=== PATIENT | female | born 1975 | race Caucasian/White ===

== ENCOUNTER 2017-10-16 12:57 | Inpatient (IN) ==
[2017-10-16] MEDS ORDERED: NS 1,000 ML IV ONE (13:34)
[2017-10-16] MEDS ORDERED: PROCHLORPERAZINE 10 MG/2 ML INJECTION IVP PRN (13:37)
[2017-10-16] MEDS ORDERED: CEFTRIAXONE 2 GM in NS 100 ML IV SCH (13:45)
[2017-10-16 14:01] VITALS: BMI 31.2
--- NOTE | 2017-10-16 14:34 | History & Physical Report ---
History of Present Illness Date: 10/16/17 Chief complaint: Syncopal episodes, headache, tick bite HPI: Melisa is a 42-year-old female who has been having intermittent episodes of syncope since 10/07/17. She reports that approximately 3 weeks ago she received a tick bite to her left anterior ankle. On 10/07/17 she had a syncopal episode at which time she lost consciousness as well as was incontinent of urine followed by vomiting. She is seen in the emergency room in [place] and discharged once stable. She did have a 24-hour Holter monitor that she does not know the results. She then was at work on 10/12/17 and again had a near syncopal episode where she felt hot and lightheaded. She states that she did not lose consciousness at this time. However, she did vomit. She presented back to [facility] emergency room for reevaluation. She was admitted outpatient observation and monitored. She was told that overnight she had several episodes of low heart rate into the 40s. On 10/11 she did have an outpatient echocardiogram that revealed an EF of 72%, otherwise normal. Today, 10/16/17 she presented to [facility] clinic for follow-up. While waiting in the waiting room, she again felt hot and lightheaded followed by dizziness. Again, she was directed to the ER for acute evaluation. Labs were obtained. Urinalysis showed trace ketones, small amount of blood, 2-5 RBCs, otherwise unremarkable. A 12-lead EKG showed normal sinus rhythm without any ST changes. Sedimentation rate was 13, chemistry panel normal, CRP less than 2, CBC unremarkable. D-dimer had been obtained on 10/03/17 that was normal. Pylori is negative. Chest x-ray unremarkable. CT scan of the head was obtained from 10/07/17 that was unremarkable. Neck concern for ongoing symptoms. The hospitalist services were contacted and accepted patient for transfer to [facility] for outpatient observation for further workup. Review of Systems All systems PM: 10-point ROS was reviewed, no additional remarkable complaints except - Constitutional Constitutional: Present: fatigue - EENMT Eyes: Present: photophobia - Cardiovascular Cardiovascular: Present: syncope - Gastrointestinal Gastrointestinal: Present: nausea - Musculoskeletal Musculoskeletal: Present: arthralgias, neck pain, stiffness - Neurological Neurological: Present: dizziness (intermittent) Neurological Comments: Headaches - Psychiatric Psychiatric: Present: difficulty concentrating - Endocrine Endocrine: Present: flushing Past Medical History Medical History Updates: Asthma Surgical History: Hysterectomy. Tonsillectomy Family History: Father-heart disease, diabetes, stomach cancer Mother-heart disease, chronic lung problems, diabetes Cousin- who of sudden cardiac at age 33 Family History: As Above - Social History Smoking status: Never smoker Substance use type: does not use Alcohol intake frequency: holidays/special occasions only Housing: house Household members: spouse Current occupational status: employed (Works at [employer] at [employer]) Social history: PCP Anthony Arboleda APRN- [facility] Medications Allergies Allergy/AdvReac Type Severity Reaction Status Date / Time No Known Drug Allergies Allergy Unknown Verified 12/18/13 09:02 Exam Vital Signs: Pulse Rate 68 10/16/17 14:00 Respiratory Rate 20 10/16/17 14:00 Blood Pressure 129/71 10/16/17 14:00 Pulse Oximetry 96 10/16/17 14:00 Height/Weight/BMI: Height 1.78 m Weight 98.9 kg Body Mass Index 31.2 - Constitutional Present: no acute distress, well nourished, well developed - Routine HEENT Exam Head: Present: atraumatic Eye: Present: EOMI, PERRL, normal accommodation ENT: Present: mucous membranes moist, dentition normal - Routine Respiratory Exam Present: CTA bilaterally. Absent: wheezes - Routine Cardiovascular Exam Present: RRR, S1, S2. Absent: murmur - Routine Abdominal Exam Present: soft, normoactive bowel sounds, non distended. Absent: tenderness - Routine Extremities Exam Present: no edema, pulses intact - Routine Skin Exam Present: intact, dry, warm Comments: Healed tick bite to left anterior ankle - Routine Neurological Exam Present: alert, oriented X3, CN II-XII intact, moving all extremities, vision grossly intact, hearing grossly intact, normal speech - Routine Psychiatric Exam Present: normal affect, normal thought process, cooperative Results - Labs CBC & Chem 7: 10/16/17 14:56 10/16/17 14:55 Assessment and Plan (1) Tick bite Current visit: Yes Status: Acute (2) Headache Current visit: Yes Status: Acute Assessment and Plan: Impression Headaches Tick bite- 3 weeks ago Syncopal episodes Arthralgias Asthma Hypernatremia (POA) Obesity with BMI 31.1 Plan Patient outpatient observation under care of Dr. Lucas for further workup. Will obtain CBC, chemistry, blood culture, venous lactate, lipase, magnesium, pro-calcitonin, INR and PTT on admission. In a GI panel given recent episodes of diarrhea/vomiting Will obtain a lumbar puncture with fluoroscopy, radiology. Will obtain tick panel and CSF culture, cell count, protein, and meningitis panel Cardiac telemetry given recent syncopal episodes. ECHO from 10/11 was normal. If she has episodes of bradycardia may need to consider cardiology consultation. IV NS for hydration IV Doxycycline for treatment of tick bite Will also cover meningeal with Rocephin 2 gm IV. SCDs for DVT PPX. Reglan and Compazine as needed for nausea Will discuss further orders and plan of care with attending, Dr. Lucas At time of discharge medical care will return to primary care provider, Anthony Arboleda APRN at [facility] in [place]. DVT Prophylaxis: SCD's Resuscitation Status: Full Code - Physician Narrative Physician: Jonas Lucas MD Narrative: Date: 10/16/17 Time: 0 Have independently interviewed and examined pt. Chart reviewed. Case discussed with Luba Bazan APRN and my [employer]. Care plan developed with my supervision; agree with above. Patient has been having a rough time for the past several weeks. Had syncopal event-was standing talking and then went out briefly, having loss of urine and had episode of emesis. Near syncopal event with emesis many days later. Has been feeling more achy and weak in general. Appetite variable. Notes intermittent loose stool. More SOA and feeling full to chest. Had overnight OBS in [place]-give Rocephin and started on oral doxycycline as recently had tick bite about 3 weeks ago. With IVF, patient felt better for about 2 days, but symptoms would wax and wane. Notes some weakness to right leg at time-will feel unusual and slightly unsteady with going up stairs. Recent Headache with photophobia. Was seen in clinic and looking so ill, sent to ED for evaluation. Lab and imagine unremarkable. Case discussed with ID who recommended LP and also continuation of doxycycline. Not able to perform LP at [place] so accepted in transfer to [facility]. Lungs: decreased, no distress CV: regular AB: soft NT/NS BS decreased MSE: awake alert Plan: OBS for further evaluation and treatment. LP. IVF for hydration. Will continue doxycycline, adding ceftriaxone 2 grams IV daily. With variable neurological symptoms, MRI would be beneficial to exclude MS. SCD for DVT prevention. Hospital Course Summary Disclaimer: The visit summary below is not to be considered part of the above Progress Note. Hospital Course: 10/16/17 Patient outpatient observation under care of Dr. Lucas for further workup. Will obtain CBC, chemistry, blood culture, venous lactate, lipase, magnesium, pro-calcitonin, INR and PTT on admission. In a GI panel given recent episodes of diarrhea/vomiting. Will obtain a lumbar puncture with fluoroscopy, radiology. Will obtain tick panel and CSF culture, cell count, protein, and meningitis panel. Cardiac telemetry given recent syncopal episodes. ECHO from 10/11 was normal. If she has episodes of bradycardia may need to consider cardiology consultation. IV NS for hydration. IV Doxycycline for treatment of tick bite. Will also cover meningeal with Rocephin 2 gm IV. SCDs for DVT PPX. Reglan and Compazine as needed for nausea. At time of discharge medical care will return to primary care provider, Anthony Arboleda APRN at [facility].
[2017-10-16] MEDS ORDERED: ACETAMINOPHEN 500 MG TABLET PO PRN (14:46)
[2017-10-16] MEDS ORDERED: LIDOCAINE 1% (10mg/ml) 5ml PF SDV ONE (15:41)
--- NOTE | 2017-10-16 16:35 | Fluoroscopy Report ---
INDICATION: tick bite Ordering physician:Ju Hastings Procedure:FL lumbar puncture LUMBAR PUNCTURE: The procedure, including the benefits, risks, and alternatives were explained in detail to the patient. All of her questions were answered. They were given the option to decline the procedure. They stated that they understood and wished to proceed. Informed consent was obtained. A pre-procedural timeout was done to verify the correct patient and proper procedure. Using sterile technique, local Xylocaine anesthesia, and fluoroscopic guidance throughout, a 20 G spinal needle was advanced from a posterior approach into the subarachnoid space at the L2-3 level. A fluoroscopic image was then obtained and archived. Removal of the stylet showed clear colorless CSF. Opening pressure was 24 centimeters of water in the prone position. Then 12 cc of CSF was taken off and sent to the lab for the requested studies. The needle was removed. The procedure was completed without complication. Following this, the patient was transferred to the recovery room and given discharge instructions. She was in stable condition. Impression: 1. Successful lumbar puncture performed with 12 cc of CSF removed. 2. Opening pressure of 24 cm of water in the prone position. Fluoroscopy dose: 6.23 mGy (Cumulative air kerma) Krishna Johnson RPA/CHRIS performed this under my personal supervision. .
[2017-10-16] MEDS: 1/2 NS 1,000 ML IV SCH (16:41)
[2017-10-16] MEDS ORDERED: MORPHINE SULFATE 2mg INJECTION IVP PRN (17:00)
[2017-10-16] MEDS ORDERED: ONDANSETRON ODT 4 MG TABLET PO PRN (17:01)
[2017-10-16] MEDS ORDERED: BISACODYL 10 MG SUPPOSITORY RECTALLY PRN (17:02)
[2017-10-16] MEDS: KETOROLAC 15 MG/ML INJECTION IVP PRN (17:28)
[2017-10-16] MEDS: HYDROCODONE/APAP 7.5 MG/325 MG TABLET PO PRN (20:55)
[2017-10-16] MEDS: DOXYCYCLINE 100 MG in NS 250ml 250 ML IV SCH (20:55)
[2017-10-17] MEDS: 1/2 NS 1,000 ML IV SCH ×3 (04:02→17:17)
[2017-10-17] MEDS: HYDROCODONE/APAP 7.5 MG/325 MG TABLET PO PRN ×3 (04:04→20:43)
[2017-10-17] MEDS: DOXYCYCLINE 100 MG in NS 250ml 250 ML IV SCH ×2 (08:39→20:44)
--- NOTE | 2017-10-17 13:08 | Progress Note ---
- Date 10/17/17 Subjective: F/U: [place] Spotted Fever, Headaches, Arthralgias Still with MCKEON, but slightly better. Pain more so in posterior aspect of head and neck. MS helps, but short lived - Donie slower to help but lasts longer. Tolerating pain medications without increase nausea. Appetite still with decrease, but able to keep liquids and small amounts of food in without emesis. Very dizzy when sitting up or moving. Breathing well without SOA or cough. No pain with breathing. Urinating well. Slight puffiness to legs. Does feel weak, tired, and washed out. Objective Vital signs: Temperature 97.3 F 10/17/17 07:24 Pulse Rate 76 10/17/17 07:21 Respiratory Rate 18 10/17/17 07:21 Blood Pressure 127/82 10/17/17 07:21 Pulse Oximetry 98 10/17/17 07:21 Height/Weight/BMI: Height 1.78 m Weight 99.8 kg Body Mass Index 31.2 - Constitutional Present: well nourished, well developed, obese, cooperative, other (Looks tired and weak) - Routine HEENT Exam Head: Present: normocephalic, atraumatic Eye: Present: EOMI, PERRL, normal accommodation ENT: Present: mucous membranes moist - Routine Respiratory Exam Present: CTA bilaterally. Absent: rales, respiratory distress, rhonchi, stridor , wheezes, crackles - Routine Cardiovascular Exam Present: RRR, no murmur - Routine Abdominal Exam Present: soft, non distended, non tender. Absent: normoactive bowel sounds ( Decreased) - Routine Extremities Exam Present: edema (Trace bilaterally), pulses intact. Absent: cyanosis, clubbing - Routine Musculoskeletal Exam Musculoskeletal: Present: no clubbing or cyanosis - Routine Skin Exam Present: intact, dry, warm - Routine Neurological Exam Present: alert, oriented X3, CN II-XII intact, moving all extremities, vision grossly intact, hearing grossly intact, normal speech. Absent: altered mental status - Routine Psychiatric Exam Present: normal affect, normal thought process, cooperative. Absent: anxious, agitated Results - Labs CBC & Chem 7: 10/17/17 08:09 10/17/17 08:09 Microbiology Results: Microbiology 10/16/17 16:10 Csf, Lumbar Puncture CSF Gram Stain - Final 10/16/17 16:10 Csf, Lumbar Puncture CSF Culture - Preliminary Culture Initiated - Results Pending 10/16/17 14:58 Peripheral/Iv Start Blood Culture - Preliminary Culture Initiated - Results Pending 10/16/17 14:55 Peripheral/Iv Start Blood Culture - Preliminary Culture Initiated - Results Pending Assessment and Plan (1) Tick bite Current visit: Yes Status: Acute (2) Headache Current visit: Yes Status: Acute Assessment and Plan: Impression [place] Spotted Fever Headaches Tick bite- 3 weeks ago Syncopal episodes Arthralgias Asthma Hypernatremia (POA) Obesity with BMI 31.1 Plan Serology taken in [place] over the weekend is positive for [place] Spotted Fever. MCKEON persists, but pain medications helping. Less nausea, but oral drive decreased. MRI brain pending. With positive RMSF and continued symptoms do not feel patient able to discharge at this time. Continue with Doxycycline 100mg IV BID. Can stop ceftriaxone. Decrease IVF to 75cc/hr. Continue pain control, adding Aspercreme and heating pad to neck for symptom relief. Increase activities as able. Will recheck CBC and BMP in am secondary to acute infection and IVF use. Case discussed with CM and family. Time spent with patient care 25 minutes. DVT Prophylaxis: SCD's Resuscitation Status: Full Code - Time spent with patient Time with patient PN: 25 minutes - Physician Narrative Physician: Jonas Lucas MD Narrative: Date: 10/17/17 Time: [id number] Hospital Course Summary Disclaimer: The visit summary below is not to be considered part of the above Progress Note. Hospital Course: 10/16/17 Patient outpatient observation under care of Dr. Lucas for further workup. Will obtain CBC, chemistry, blood culture, venous lactate, lipase, magnesium, pro-calcitonin, INR and PTT on admission. In a GI panel given recent episodes of diarrhea/vomiting. Will obtain a lumbar puncture with fluoroscopy, radiology. Will obtain tick panel and CSF culture, cell count, protein, and meningitis panel. Cardiac telemetry given recent syncopal episodes. ECHO from 10/11 was normal. If she has episodes of bradycardia may need to consider cardiology consultation. IV NS for hydration. IV Doxycycline for treatment of tick bite. Will also cover meningeal with Rocephin 2 gm IV. SCDs for DVT PPX. Reglan and Compazine as needed for nausea. At time of discharge medical care will return to primary care provider, Anthony Arboleda APRN at [facility] in [place]. 10/17/17 Serology taken in [place] over the weekend is positive for [place] Spotted Fever. MCKEON persists, but pain medications helping. Less nausea, but oral drive decreased. MRI brain pending. With positive RMSF and continued symptoms, do not feel patient able to discharge at this time. Continue with Doxycycline 100mg IV BID. Can stop ceftriaxone. Decrease IVF to 75cc/hr. Continue pain control, adding Aspercreme and heating pad to neck for symptom relief. Increase activities as able.
[2017-10-17] MEDS ORDERED: SALINE FLUSH 10ml SYRINGE ONE (13:45)
--- NOTE | 2017-10-17 14:47 | Magnetic Resonance Report ---
Indication: Variable neurological symptoms - ? MS, tumor PROCEDURE: MR head/brain wo/w con: Encounter: Initial Comparisons: None Technique: Multiplanar, multisequence, MR imaging of the head with and without contrast was acquired. Contrast: 19 mL of ProHance FINDINGS: The ventricles are of normal size, shape, and contour for the patient's age. The brain stem, cerebellum, and cerebral hemispheres have a normal morphologic appearance as well as MR signal intensity on all pulse sequences. Following intravenous administration of contrast, no areas of abnormal enhancement are evident. There are no areas of restricted diffusion to suggest an acute infarct. There is no evidence of an intracranial mass lesion, intracranial hemorrhage, or hydrocephalus. The visualized portions of the orbits, calvarium, paranasal sinuses, and skull base demonstrate no significant abnormality. IMPRESSION: Normal exam .
[2017-10-18] MEDS: HYDROCODONE/APAP 7.5 MG/325 MG TABLET PO PRN ×3 (03:04→18:13)
[2017-10-18] MEDS: 1/2 NS 1,000 ML IV SCH ×3 (03:33→18:01)
[2017-10-18] MEDS: METOCLOPRAMIDE 10mg/2ml INJECTION IVP PRN (07:44)
[2017-10-18] MEDS ORDERED: DOCUSATE SODIUM 100 MG CAPSULE PO PRN (08:31)
[2017-10-18] MEDS: DOXYCYCLINE 100 MG in NS 250ml 250 ML IV SCH ×2 (08:49→21:36)
--- NOTE | 2017-10-18 14:16 | Progress Note ---
- Date 10/18/17 Subjective: F/U: [place] Spotted Fever, Headaches, Arthralgias Still with headache and nausea. Oral drive decreased-will take some foods/ liquids in but not very hungry. Pain medications helping-not worsening nausea, but slowing stool. Passing flatus, but not feeling need for bowel movement. Urinating well-not too urgent or frequent, making normal amount of urine. Very weak and fatigued in general. Tires easily. Breathing stable. Objective Vital signs: Temperature 97.8 F 10/18/17 07:37 Pulse Rate 63 10/18/17 09:00 Respiratory Rate 16 10/18/17 07:37 Blood Pressure 118/73 10/18/17 07:37 Pulse Oximetry 96 10/18/17 07:37 Height/Weight/BMI: Height 1.78 m Weight 100.1 kg Body Mass Index 31.2 - Constitutional Present: well nourished, well developed, obese, cooperative, other (Appears tired) - Routine HEENT Exam Head: Present: normocephalic, atraumatic Eye: Present: EOMI, PERRL ENT: Present: mucous membranes moist - Routine Respiratory Exam Present: CTA bilaterally. Absent: respiratory distress - Routine Cardiovascular Exam Present: RRR, no murmur - Routine Abdominal Exam Present: soft, non distended, non tender. Absent: normoactive bowel sounds - Routine Extremities Exam Present: edema (Trace BLE ), pulses intact. Absent: cyanosis, clubbing - Routine Musculoskeletal Exam Musculoskeletal: Present: no clubbing or cyanosis - Routine Skin Exam Present: dry, warm - Routine Neurological Exam Present: alert, oriented X3, CN II-XII intact, moving all extremities, vision grossly intact, hearing grossly intact, normal speech. Absent: motor deficit - Routine Psychiatric Exam Present: cooperative, good insight, good judgment Comments: Psychomotor slowing Results - Labs CBC & Chem 7: 10/18/17 04:49 10/18/17 04:49 Microbiology Results: Microbiology 10/16/17 16:10 Csf, Lumbar Puncture CSF Gram Stain - Final 10/16/17 16:10 Csf, Lumbar Puncture CSF Culture - Preliminary No Growth After 1 Day 10/16/17 14:58 Peripheral/Iv Start Blood Culture - Preliminary No Growth After 1 Day 10/16/17 14:55 Peripheral/Iv Start Blood Culture - Preliminary No Growth After 1 Day Assessment and Plan (1) Tick bite Current visit: Yes Status: Acute (2) Headache Current visit: Yes Status: Acute Assessment and Plan: Impression [place] Spotted Fever Headaches Tick bite- 3 weeks ago Syncopal episodes Arthralgias Asthma Hypernatremia (POA) Obesity with BMI 31.1 Plan Continue with doxycycline for treatment of RSMF. Decreased IVF to 50cc/hr - encourage oral intake as able. Will start routine Miralax daily and Senna-Plus BID secondary to narcotic induced constipation. Continue with pain and nausea control. Encourage activities as able. Case discussed with CM and family. Time spent with patient care 35 minutes. DVT Prophylaxis: SCD's Resuscitation Status: Full Code - Time spent with patient Time with patient PN: 25 minutes - Physician Narrative Physician: Jonas Lucas MD Narrative: Date: 10/18/17 Time: 1413 Hospital Course Summary Disclaimer: The visit summary below is not to be considered part of the above Progress Note. Hospital Course: 10/16/17 Patient outpatient observation under care of Dr. Lucas for further workup. Will obtain CBC, chemistry, blood culture, venous lactate, lipase, magnesium, pro-calcitonin, INR and PTT on admission. In a GI panel given recent episodes of diarrhea/vomiting. Will obtain a lumbar puncture with fluoroscopy, radiology. Will obtain tick panel and CSF culture, cell count, protein, and meningitis panel. Cardiac telemetry given recent syncopal episodes. ECHO from 10/11 was normal. If she has episodes of bradycardia may need to consider cardiology consultation. IV NS for hydration. IV Doxycycline for treatment of tick bite. Will also cover meningeal with Rocephin 2 gm IV. SCDs for DVT PPX. Reglan and Compazine as needed for nausea. At time of discharge medical care will return to primary care provider, Anthony Arboleda APRN at [facility] in [place]. 10/17/17 Serology taken in [place] over the weekend is positive for [place] Spotted Fever. MCKEON persists, but pain medications helping. Less nausea, but oral drive decreased. MRI brain pending. With positive RMSF and continued symptoms, do not feel patient able to discharge at this time. Continue with Doxycycline 100mg IV BID. Can stop ceftriaxone. Decrease IVF to 75cc/hr. Continue pain control, adding Aspercreme and heating pad to neck for symptom relief. Increase activities as able. 10/18/17 Admission status changed to inpatient as continue hospital care needed. Continue with doxycycline for treatment of RSMF. Decreased IVF to 50cc/hr - encourage oral intake as able. Will start routine Miralax daily and Senna-Plus BID secondary to narcotic induced constipation. Continue with pain and nausea control. Encourage activities as able.
[2017-10-18] MEDS: POLYETHYL GLYCOL 3350 17gm PACKET PO SCH (14:59)
[2017-10-18] MEDS: SENNA + DOCUSATE TABLET PO SCH (21:37)
[2017-10-19] MEDS: METOCLOPRAMIDE 10mg/2ml INJECTION IVP PRN ×3 (00:17→17:16)
[2017-10-19] MEDS: HYDROCODONE/APAP 7.5 MG/325 MG TABLET PO PRN ×3 (00:18→17:15)
[2017-10-19] MEDS: 1/2 NS 1,000 ML IV SCH ×2 (03:25→11:28)
[2017-10-19] MEDS: POLYETHYL GLYCOL 3350 17gm PACKET PO SCH (08:28)
[2017-10-19] MEDS: SENNA + DOCUSATE TABLET PO SCH ×2 (08:28→20:58)
[2017-10-19] MEDS: DOXYCYCLINE 100 MG in NS 250ml 250 ML IV SCH ×2 (08:36→20:57)
--- NOTE | 2017-10-19 14:22 | Progress Note ---
- Date 10/19/17 Subjective: F/U: [place] Spotted Fever, Headaches, Arthralgias Improving gradually. Still having headache which make it hard to think, focus, and concentrate. Trying to go longer between pain medications. Nausea comes and goes. Eating more. Keeping fluids in. No f/c. Breathing well. Did have bowel movement. Urinating well. Objective Vital signs: Temperature 98.1 F 10/19/17 07:32 Pulse Rate 62 10/19/17 08:00 Respiratory Rate 18 10/19/17 08:28 Blood Pressure 113/69 10/19/17 07:32 Pulse Oximetry 96 10/19/17 07:32 Height/Weight/BMI: Height 1.78 m Weight 100.2 kg Body Mass Index 31.2 - Constitutional Present: well nourished, well developed, obese, cooperative - Routine HEENT Exam Head: Present: normocephalic, atraumatic Eye: Present: EOMI, PERRL ENT: Present: mucous membranes moist - Routine Respiratory Exam Present: CTA bilaterally. Absent: respiratory distress - Routine Cardiovascular Exam Present: RRR, no murmur - Routine Abdominal Exam Present: soft, non distended, non tender. Absent: normoactive bowel sounds ( decreased) - Routine Extremities Exam Present: edema (+1 BLE), pulses intact. Absent: cyanosis, clubbing - Routine Musculoskeletal Exam Musculoskeletal: Present: no clubbing or cyanosis - Routine Skin Exam Present: dry, warm - Routine Neurological Exam Present: alert, oriented X3, CN II-XII intact, moving all extremities, vision grossly intact, hearing grossly intact, normal speech. Absent: motor deficit Psychomotor slowing. Mentation clear, but mild slowing present. - Routine Psychiatric Exam Present: normal affect, normal thought process, cooperative Comments: Psychomotor slowing Results - Labs CBC & Chem 7: 10/18/17 04:49 10/18/17 04:49 Microbiology Results: Microbiology 10/16/17 16:10 Csf, Lumbar Puncture CSF Gram Stain - Final 10/16/17 16:10 Csf, Lumbar Puncture CSF Culture - Preliminary No Growth After 2 Days 10/16/17 14:58 Peripheral/Iv Start Blood Culture - Preliminary No Growth After 2 Days 10/16/17 14:55 Peripheral/Iv Start Blood Culture - Preliminary No Growth After 2 Days Assessment and Plan (1) Tick bite Current visit: Yes Status: Acute (2) Headache Current visit: Yes Status: Acute Assessment and Plan: Impression [place] Spotted Fever Headaches Encephalopathy/Psychomotor slowing Tick bite- 3 weeks ago Syncopal episodes Arthralgias Asthma Hypernatremia (POA) Obesity with BMI 31.1 Plan Improving. Nausea decreasing-keeping foods/liquids in. MCKEON continues, but able to go longer between pain medications. Will stop IVF as oral intake improving. Continue Doxycycline for treatment of RSMF. Bowel function improving with medication help. Hope for discharge in near future if symptoms improve. Discussed with patient about return to work-would recommend 10/29 at the earliest. Will fill out temporary disability papers for work for patient. Case discussed with CM and family. Time spent with patient care 35 minutes. DVT Prophylaxis: SCD's Resuscitation Status: Full Code - Time spent with patient Time with patient PN: 35 minutes - Physician Narrative Physician: Jonas Lucas MD Narrative: Date: 10/19/17 Time: 141 Hospital Course Summary Disclaimer: The visit summary below is not to be considered part of the above Progress Note. Hospital Course: 10/16/17 Patient outpatient observation under care of Dr. Lucas for further workup. Will obtain CBC, chemistry, blood culture, venous lactate, lipase, magnesium, pro-calcitonin, INR and PTT on admission. In a GI panel given recent episodes of diarrhea/vomiting. Will obtain a lumbar puncture with fluoroscopy, radiology. Will obtain tick panel and CSF culture, cell count, protein, and meningitis panel. Cardiac telemetry given recent syncopal episodes. ECHO from 10/11 was normal. If she has episodes of bradycardia may need to consider cardiology consultation. IV NS for hydration. IV Doxycycline for treatment of tick bite. Will also cover meningeal with Rocephin 2 gm IV. SCDs for DVT PPX. Reglan and Compazine as needed for nausea. At time of discharge medical care will return to primary care provider, Anthony Arboleda APRN at [facility] in [place]. 10/17/17 Serology taken in [place] over the weekend is positive for [place] Spotted Fever. MCKEON persists, but pain medications helping. Less nausea, but oral drive decreased. MRI brain pending. With positive RMSF and continued symptoms, do not feel patient able to discharge at this time. Continue with Doxycycline 100mg IV BID. Can stop ceftriaxone. Decrease IVF to 75cc/hr. Continue pain control, adding Aspercreme and heating pad to neck for symptom relief. Increase activities as able. 10/18/17 Admission status changed to inpatient as continue hospital care needed. Continue with doxycycline for treatment of RSMF. Decreased IVF to 50cc/hr - encourage oral intake as able. Will start routine Miralax daily and Senna-Plus BID secondary to narcotic induced constipation. Continue with pain and nausea control. Encourage activities as able. 10/19/17 Improving. Nausea decreasing-keeping foods/liquids in. MCKEON continues, but able to go longer between pain medications. Will stop IVF as oral intake improving. Continue Doxycycline for treatment of RSMF. Bowel function improving with medication help. Hope for discharge in near future if symptoms improve. Discussed with patient about return to work-would recommend 10/29 at the earliest.
[2017-10-19] MEDS ORDERED: NS FLUSH BAG 500ml IV PRN (22:49)
[2017-10-20] MEDS: HYDROCODONE/APAP 7.5 MG/325 MG TABLET PO PRN (06:45)
[2017-10-20] MEDS: SENNA + DOCUSATE TABLET PO SCH ×2 (09:01→22:20)
[2017-10-20] MEDS: METOCLOPRAMIDE 10mg/2ml INJECTION IVP PRN (09:01)
[2017-10-20] MEDS: POLYETHYL GLYCOL 3350 17gm PACKET PO SCH (09:02)
[2017-10-20] MEDS: KETOROLAC 15 MG/ML INJECTION IVP PRN (09:12)
[2017-10-20] MEDS: DOXYCYCLINE 100 MG in NS 250ml 250 ML IV SCH ×2 (09:27→22:19)
--- NOTE | 2017-10-20 14:16 | Progress Note ---
- Date 10/20/17 Subjective: Still complains of headache. She vomited after eating breakfast today, but is feeling somewhat better. Still able to drink sprite and water. Objective Vital signs: Temperature 97.8 F 10/20/17 07:11 Pulse Rate 51 L 10/20/17 08:00 Respiratory Rate 18 10/20/17 09:16 Blood Pressure 121/72 10/20/17 07:11 Pulse Oximetry 95 10/20/17 07:11 Height/Weight/BMI: Height 5 ft 10 in Weight 100.5 kg Body Mass Index 31.2 - Constitutional Comments: appears ill. - Routine HEENT Exam Head: Present: normocephalic, atraumatic Eye: Present: EOMI, PERRL ENT: Present: mucous membranes moist - Routine Respiratory Exam Present: CTA bilaterally - Routine Cardiovascular Exam Present: RRR - Routine Abdominal Exam Present: soft, non distended, non tender - Routine Extremities Exam Present: no edema - Routine Skin Exam Present: intact, dry, warm - Routine Neurological Exam Present: alert, oriented X3, CN II-XII intact Results - Labs CBC & Chem 7: 10/18/17 04:49 10/18/17 04:49 Microbiology Results: Microbiology 10/16/17 16:10 Csf, Lumbar Puncture CSF Gram Stain - Final 10/16/17 16:10 Csf, Lumbar Puncture CSF Culture - Final No Growth After 3 Days 10/16/17 14:58 Peripheral/Iv Start Blood Culture - Preliminary No Growth After 3 Days 10/16/17 14:55 Peripheral/Iv Start Blood Culture - Preliminary No Growth After 3 Days Assessment and Plan (1) Tick bite Current visit: Yes Status: Acute (2) Headache Current visit: Yes Status: Acute Assessment and Plan: Impression [place] Spotted Fever Headaches Encephalopathy/Psychomotor slowing Tick bite- 3 weeks ago Syncopal episodes Arthralgias Asthma Hypernatremia (POA) Obesity with BMI 31.1 Plan Improving. Nausea decreasing overall, but persistent this morning. Headache is 3/10 today. Monitor for need of IVF. Continue Doxycycline for treatment of RSMF. Change to oral as can tolerate. Bowel function improving with medication help. Hope for discharge in near future if symptoms improve. . - Physician Narrative Narrative: Date: 10/20/17 Time: 141 Hospital Course Summary Disclaimer: The visit summary below is not to be considered part of the above Progress Note. Hospital Course: 10/16/17 Patient outpatient observation under care of Dr. Lucas for further workup. Will obtain CBC, chemistry, blood culture, venous lactate, lipase, magnesium, pro-calcitonin, INR and PTT on admission. In a GI panel given recent episodes of diarrhea/vomiting. Will obtain a lumbar puncture with fluoroscopy, radiology. Will obtain tick panel and CSF culture, cell count, protein, and meningitis panel. Cardiac telemetry given recent syncopal episodes. ECHO from 10/11 was normal. If she has episodes of bradycardia may need to consider cardiology consultation. IV NS for hydration. IV Doxycycline for treatment of tick bite. Will also cover meningeal with Rocephin 2 gm IV. SCDs for DVT PPX. Reglan and Compazine as needed for nausea. At time of discharge medical care will return to primary care provider, Anthony Arboleda APRN at [facility] in [place]. 10/17/17 Serology taken in [place] over the weekend is positive for [place] Spotted Fever. MCKEON persists, but pain medications helping. Less nausea, but oral drive decreased. MRI brain pending. With positive RMSF and continued symptoms, do not feel patient able to discharge at this time. Continue with Doxycycline 100mg IV BID. Can stop ceftriaxone. Decrease IVF to 75cc/hr. Continue pain control, adding Aspercreme and heating pad to neck for symptom relief. Increase activities as able. 10/18/17 Admission status changed to inpatient as continue hospital care needed. Continue with doxycycline for treatment of RSMF. Decreased IVF to 50cc/hr - encourage oral intake as able. Will start routine Miralax daily and Senna-Plus BID secondary to narcotic induced constipation. Continue with pain and nausea control. Encourage activities as able. 10/19/17 Improving. Nausea decreasing-keeping foods/liquids in. MCKEON continues, but able to go longer between pain medications. Will stop IVF as oral intake improving. Continue Doxycycline for treatment of RSMF. Bowel function improving with medication help. Hope for discharge in near future if symptoms improve. Discussed with patient about return to work-would recommend 10/29 at the earliest. 10/20/17 Improving. Nausea decreasing overall, but persistent this morning. Headache is 3/10 today. Monitor for need of IVF. Continue Doxycycline for treatment of RSMF. Change to oral as can tolerate. Bowel function improving with medication help. Hope for discharge in near future if symptoms improve.
[2017-10-20 15:42] VITALS: O2SAT 96
[2017-10-20] MEDS: ACETAMINOPHEN 325 MG TABLET PO PRN ×2 (17:30→22:57)
[2017-10-21 07:29] VITALS: BP 122/70; RESP 18; TEMP 97.6
[2017-10-21] MEDS: HYDROCODONE/APAP 7.5 MG/325 MG TABLET PO PRN ×2 (07:31→11:35)
[2017-10-21] MEDS: POLYETHYL GLYCOL 3350 17gm PACKET PO SCH (09:12)
[2017-10-21] MEDS: SENNA + DOCUSATE TABLET PO SCH (09:13)
--- NOTE | 2017-10-21 10:21 | Discharge Summary ---
Discharge Information Date of admission: 10/18/17 08:47 Anticipated date of discharge: 10/21/17 Attending Physician: Bev Rivera DO Primary care physician: Anthony Arango APRN - Discharge Diagnosis (1) Tick bite Status: Acute (2) Headache Status: Acute - Laboratory Labs: 10/21/17 04:08 10/21/17 04:07 - Microbiology Microbiology 10/16/17 14:58 Peripheral/Iv Start Blood Culture - Preliminary No Growth After 4 Days 10/16/17 14:55 Peripheral/Iv Start Blood Culture - Preliminary No Growth After 4 Days 10/16/17 16:10 Csf, Lumbar Puncture CSF Gram Stain - Final 10/16/17 16:10 Csf, Lumbar Puncture CSF Culture - Final No Growth After 3 Days History of Present Illness HPI: Melisa is a 42-year-old female who has been having intermittent episodes of syncope since 10/07/17. She reports that approximately 3 weeks ago she received a tick bite to her left anterior ankle. On 10/07/17 she had a syncopal episode at which time she lost consciousness as well as was incontinent of urine followed by vomiting. She is seen in the emergency room in [place] and discharged once stable. She did have a 24-hour Holter monitor that she does not know the results. She then was at work on 10/12/17 and again had a near syncopal episode where she felt hot and lightheaded. She states that she did not lose consciousness at this time. However, she did vomit. She presented back to [facility] emergency room for reevaluation. She was admitted outpatient observation and monitored. She was told that overnight she had several episodes of low heart rate into the 40s. On 10/11 she did have an outpatient echocardiogram that revealed an EF of 72%, otherwise normal. Today, 10/16/17 she presented to [facility] clinic for follow-up. While waiting in the waiting room, she again felt hot and lightheaded followed by dizziness. Again, she was directed to the ER for acute evaluation. Labs were obtained. Urinalysis showed trace ketones, small amount of blood, 2-5 RBCs, otherwise unremarkable. A 12-lead EKG showed normal sinus rhythm without any ST changes. Sedimentation rate was 13, chemistry panel normal, CRP less than 2, CBC unremarkable. D-dimer had been obtained on 10/03/17 that was normal. Pylori is negative. Chest x-ray unremarkable. CT scan of the head was obtained from 10/07/17 that was unremarkable. Neck concern for ongoing symptoms. The hospitalist services were contacted and accepted patient for transfer to [facility] for outpatient observation for further workup. Objective Vital signs: Temperature 97.6 F 10/21/17 07:27 Pulse Rate 68 10/21/17 07:27 Respiratory Rate 18 10/21/17 07:27 Blood Pressure 122/70 10/21/17 07:27 Pulse Oximetry 96 10/21/17 07:27 Height/Weight/BMI: Height 5 ft 10 in Weight 100.2 kg Body Mass Index 31.2 - Constitutional Present: no acute distress - Routine HEENT Exam Head: Present: normocephalic, atraumatic Eye: Present: EOMI, PERRL ENT: Present: mucous membranes moist - Routine Respiratory Exam Present: CTA bilaterally - Routine Cardiovascular Exam Present: RRR - Routine Abdominal Exam Present: soft, non distended, non tender - Routine Extremities Exam Present: no edema - Routine Skin Exam Present: intact, dry, warm - Routine Neurological Exam Present: alert, oriented X3, CN II-XII intact Hospital Course This is a general summary of the patient's hospital course. For more details refer to the complete medical record. Hospital course: 10/16/17 Patient outpatient observation under care of Dr. Lucas for further workup. Will obtain CBC, chemistry, blood culture, venous lactate, lipase, magnesium, pro-calcitonin, INR and PTT on admission. In a GI panel given recent episodes of diarrhea/vomiting. Will obtain a lumbar puncture with fluoroscopy, radiology. Will obtain tick panel and CSF culture, cell count, protein, and meningitis panel. Cardiac telemetry given recent syncopal episodes. ECHO from 10/11 was normal. If she has episodes of bradycardia may need to consider cardiology consultation. IV NS for hydration. IV Doxycycline for treatment of tick bite. Will also cover meningeal with Rocephin 2 gm IV. SCDs for DVT PPX. Reglan and Compazine as needed for nausea. At time of discharge medical care will return to primary care provider, Anthony Arboleda APRN at [facility] in [place]. 10/17/17 Serology taken in [place] over the weekend is positive for [place] Spotted Fever. MCKEON persists, but pain medications helping. Less nausea, but oral drive decreased. MRI brain pending. With positive RMSF and continued symptoms, do not feel patient able to discharge at this time. Continue with Doxycycline 100mg IV BID. Can stop ceftriaxone. Decrease IVF to 75cc/hr. Continue pain control, adding Aspercreme and heating pad to neck for symptom relief. Increase activities as able. 10/18/17 Admission status changed to inpatient as continue hospital care needed. Continue with doxycycline for treatment of RSMF. Decreased IVF to 50cc/hr - encourage oral intake as able. Will start routine Miralax daily and Senna-Plus BID secondary to narcotic induced constipation. Continue with pain and nausea control. Encourage activities as able. 10/19/17 Improving. Nausea decreasing-keeping foods/liquids in. MCKEON continues, but able to go longer between pain medications. Will stop IVF as oral intake improving. Continue Doxycycline for treatment of RSMF. Bowel function improving with medication help. Hope for discharge in near future if symptoms improve. Discussed with patient about return to work-would recommend 10/29 at the earliest. 10/20/17 Improving. Nausea decreasing overall, but persistent this morning. Headache is 3/10 today. Monitor for need of IVF. Continue Doxycycline for treatment of RSMF. Change to oral as can tolerate. Bowel function improving with medication help. Hope for discharge in near future if symptoms improve. 10/21/17 Patient feeling much better today, ready for d/c. Home on oral doxycycline to complete total of 14 days - started doxy on 10/14/17 [place] given for headache at home. F/u PCP later this week. Time spent with patient: less than 15 minutes Resuscitation Status: Full Code Discharge Plan - Discharge Disposition Discharge Date: 10/21/17 Disposition: 01 Discharged Home, Self-Care *Condition: Stable Reason For Visit (Visit label in EMR): Headache, nausea, vomiting - Discharge Medications *Discharge Medications: New Bisacodyl Supp [Dulcolax] 10 mg RECTALLY DAILY PRN suppositor PRN Reason: Constipation Docusate Sodium [Colace] 100 mg PO BID PRN cap PRN Reason: Constipation /Stool Softening Acetaminophen [Tylenol] 650 mg PO Q5H PRN tab PRN Reason: Discomfort Hydrocodone/APAP 7.5/325 [[place] 7.5/325] 1 tab PO Q4H PRN #30 tab PRN Reason: Pain Continue Doxycycline Monohydrate 100 mg PO BID 7 Days #0 - Discharge Packet/Instructions *Diet: Regular *Activity: As tolerated, off work until PCP follow up *Pain Management/Treatment: norco and tylenol for headache *Wound Care: none *Expected Signs/Symptoms: improvement of headache, nausea, and fatigue through the week *Notify Physician if: worsening symptoms or persistent fever *During Business Hours Contact: PCP *After Business Hours Contact: Emergency Room *Pending Lab/Results: Follow up w/Provider (Tick panel pending from [facility]) - Referrals/Follow Up - Patient Handouts Patient Handouts: Acute Headache (GEN), [place] Spotted Fever (GEN) - Dismissal Complete Discharge Instructions are:: Complete Physician Narrative - Narrative Attestation Narrative: Date: 10/21/17 Time: 4861
[2017-10-21 13:38] VITALS: PULSE 63
== END 2017-10-21 11:43 | disposition home or self-care (01) | DRG 868 ==
LOC: MED → SUATTDRO 10-18 08:47
PROVIDERS: ADMIT Hospitalist; ATTEND Internal Medicine